=== PATIENT | male | born 1950 ===

== ENCOUNTER → 2018-08-09 | Outpatient (CLI) | payer OTHER ==
[~2018-08-09] VITALS: Ht 177.8 cm; Wt 95.3 kg
[~2018-08-09] MED LIST: ALEVE220 MG PO; ATENOLOL 50MG T50 M1 PO; DIPHENHIST50 MG PO; EXCEDRIN CAPLE1 EACH PO; IBUPROFEN 200200 M1 PO; LOSARTAN POTAS100 MG PO; MELATONIN5 M1 PO; NAUZENE TABLET1 EACH PO; NEURONTIN 300300 M1 PO; OMEPRAZOLE40 MG PO; ROLAIDS CHEWAB1 EAC1 PO; TYLENOL EXTRA500 MG PO; ZANTAC 150MG T150 MG PO
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
[2018-08-09 13:00] VITALS: BP 164/100
--- NOTE | 2018-08-09 13:36 | NUR ---
Pain Clinic Assessment: 1. History of Osteoarthritis: Not Applicable History of Rheumatoid Arthritis: Not Applicable 2. Height: 5 ft. 10 in. 177.8 cm. Weight: 210.0 lb. oz. 95.256 kg. Patient's BMI: 30.1 3. Vital Signs: BP: 164/100 Pulse: 82 Resp: 16 Temp: 02 Sat: 99 ECG Mon: 4. Pain Intensity: 10 5. Fall Risk: Dizziness: N Needs help standing or walking: N Fallen in the last 3 months: N Fall risk comments: 6. Patient on Blood Thinner: None 7. History of Hypertension: Y 8. Opioid Therapy greater than 6 weeks: N Opiate Contract Signed: 9. Risk Assessment Tool Provided: LOW RISK 04/05 10. Functional Assessment Tool: 11. Recreational Drug Use: Never Drug Type: Tobacco Use: Never Smoker Tobacco Type: Amount or Packs/day: How Many Years: Alcohol Use: No Frequency: Quant:
== END ==
LOC: EDBD → RAD 06:54 → PAIN 06:54
DX: M47.816 Spondylosis without myelopathy or radiculopathy, lumbar region (principal); M25.78 Osteophyte, vertebrae; Z79.899 Other long term (current) drug therapy; Z79.891 Long term (current) use of opiate analgesic